=== PATIENT | male | born 1975 | race Caucasian/White ===

== ENCOUNTER 2022-08-10 12:38 | Emergency (ER) | payer SELFPAY ==
[~2022-08-10] VITALS: Ht 167.6 cm; Wt 75.0 kg
[2022-08-10 13:11] VITALS: BP 153/112
[2022-08-10] MEDS ORDERED: IBUPROFEN 600MG TABLET PO ONE (15:30)
[2022-08-10] MEDS ORDERED: TETANUS, DIPHTHERIA, PERTUSSIS VAC/PF 0.5ML (>10YR OLD) IM ONE (15:30)
== END 2022-08-10 17:52 | disposition home or self-care (01) ==
LOC: ER 13:07
DX: S40.021A Contusion of right upper arm, initial encounter (principal); S40.212A Abrasion of left shoulder, initial encounter; S80.211A Abrasion, right knee, initial encounter; Y08.89XA Assault by other specified means, initial encounter; Y93.89 Activity, other specified; Y92.89 Other specified places as the place of occurrence of the external cause; Y99.8 Other external cause status
CPT/HCPCS: 71045; 90471; 90715; 99285

== ENCOUNTER 2023-05-25 12:06 | Emergency (ER) | payer MEDICAID ==
[~2023-05-25] VITALS: Ht 170.2 cm; Wt 78.0 kg
[2023-05-25 12:07] VITALS: BP 186/107; PULSE 55; RESP 16; TEMP 98.8; O2SAT 100
[2023-05-25] MEDS ORDERED: PERM60CR4 TP (13:42)
== END 2023-05-25 14:14 | disposition home or self-care (01) ==
LOC: ER 12:06
DX: R21 Rash and other nonspecific skin eruption (principal); I10 Essential (primary) hypertension; Z88.0 Allergy status to penicillin
CPT/HCPCS: 99282

== ENCOUNTER 2024-09-02 11:39 | Emergency (ER) | payer MEDICAID ==
[~2024-09-02] VITALS: Ht 172.7 cm; Wt 79.0 kg
[~2024-09-02 11:39] MED LIST: PERM60CR4 TP
[2024-09-02 11:54] VITALS: O2SAT 99
[2024-09-02 12:23] LABS: HEMATOCRIT. 42.6 % (42.0-52.0); HEMOGLOBIN. 14.6 g/dL (14.0-18.0); MEAN CORPUSCULAR HEMOGLOBIN 30.1 pg (28.0-32.0); MEAN CORPUSCULAR HGB CONC 34.4 g/dL (31.0-37.0); MEAN CORPUSCULAR VOLUME 87.5 fL (80.0-94.0); PLATELET 258 x1000/uL (130-400); RED BLOOD CELL COUNT 4.87 mill/uL (4.7-6.1); RED CELL DISTRIBUTION WIDTH 12.8 % (11.6-14.6); WHITE BLOOD COUNT 4.4 x1000/uL (4.5-11.0)
[2024-09-02 12:24] LABS: DIFFERENTIAL COMMENT 1
[2024-09-02 12:35] LABS: CARBON DIOXIDE 26 mEq/L (21-32); CHLORIDE 104 mEq/L (98-107); SODIUM 138 mEq/L (136-145)
[2024-09-02 12:36] LABS: CALCIUM 9.2 mg/dL (8.7-10.4)
[2024-09-02 12:40] LABS: CREATININE 0.9 mg/dL (0.6-1.3)
[2024-09-02 12:41] LABS: GLUCOSE 121 mg/dL (70-105); UREA NITROGEN BLOOD 7 mg/dL (9-23)
[2024-09-02 12:46] LABS: TROPONIN I HIGH SENSITIVITY < 4 ng/L (3.0-53)
[2024-09-02 12:47] LABS: INR 0.9; PARTIAL THROMBOPLASTIN TIME 26.5 sec (23.4-31.0); PROTHROMBIN TIME 10.2 sec (9.6-11.0)
[2024-09-02 13:00] LABS: PLATELET ESTIMATE NORMAL
[2024-09-02 13:49] VITALS: BP 174/114; PULSE 70; RESP 15; TEMP 36.9; O2SAT 98
[2024-09-02] MEDS ORDERED: AMLO2.5T2 MT ×2 (14:09→14:10)
[2024-09-02] MEDS ORDERED: AMLO5TAB5 MT (14:12)
== END 2024-09-02 14:20 | disposition home or self-care (01) ==
LOC: ER 11:48
DX: I16.0 Hypertensive urgency (principal); Z88.0 Allergy status to penicillin; Z79.899 Other long term (current) drug therapy; Z98.890 Other specified postprocedural states
CPT/HCPCS: 36415; 71045; 80048; 84484; 85025; 93005; 99285

== ENCOUNTER 2024-10-27 01:21 | Emergency (ER) | payer SELFPAY ==
[~2024-10-27] VITALS: Ht 172.7 cm; Wt 86.3 kg
[~2024-10-27 01:21] MED LIST changes: +AMLO5TAB5 MT
[2024-10-27 01:25] VITALS: O2SAT 100
[2024-10-27] MEDS: ACETAMINOPHEN 500MG TABLET PO ONE (01:52)
[2024-10-27 05:13] VITALS: TEMP 36.4; O2SAT 99
[2024-10-27 05:17] VITALS: BP 124/91; PULSE 87; RESP 18
[2024-10-27] MEDS: KETOROLAC 15MG/ML VIAL IM ONE (05:17)
[2024-10-27] MEDS ORDERED: DOXY100C5 MT (05:18)
== END 2024-10-27 05:45 | disposition home or self-care (01) ==
LOC: ER 01:26
DX: J32.9 Chronic sinusitis, unspecified (principal); I10 Essential (primary) hypertension; Z79.899 Other long term (current) drug therapy; Z98.890 Other specified postprocedural states; Z88.0 Allergy status to penicillin
CPT/HCPCS: 99283; 71045; 96372; J1885

== ENCOUNTER 2025-01-11 12:16 | Emergency (ER) | payer MEDICAID ==
[~2025-01-11] VITALS: Ht 172.7 cm; Wt 85.0 kg
[~2025-01-11 12:16] MED LIST changes: -AMLO5TAB5 MT; +AMLO5TAB6 MT; +DOXY100C5 MT; +PERM60CR20 TP; -PERM60CR4 TP
[2025-01-11 12:20] VITALS: O2SAT 97
[2025-01-11] MEDS ORDERED: ALBU18HF2 IH (13:15)
[2025-01-11] MEDS ORDERED: AZIT250T12 MT (13:15)
[2025-01-11] MEDS ORDERED: D-ME473S50 PO (13:15)
[2025-01-11] MEDS ORDERED: AMLODIPINE 5MG TABLET PO ONE (14:00)
[2025-01-11] MEDS ORDERED: AMLO5TAB88 MT (14:01)
[2025-01-11] MEDS ORDERED: ACET-3800 MT (14:02)
[2025-01-11 14:10] VITALS: BP 176/110; PULSE 78; RESP 18; TEMP 36.8; O2SAT 99
== END 2025-01-11 14:13 | disposition home or self-care (01) ==
LOC: ER 12:16
DX: J20.9 Acute bronchitis, unspecified (principal); I10 Essential (primary) hypertension; Z76.0 Encounter for issue of repeat prescription; Z79.899 Other long term (current) drug therapy; Z20.822 Contact with and (suspected) exposure to COVID-19; Z88.0 Allergy status to penicillin
CPT/HCPCS: 71045; 87426; 99284